=== PATIENT | male | born 1960 | race Caucasian/White ===

== ENCOUNTER 2020-08-18 08:55 | Day surgery (SDC) | payer OTHER ==
[~2020-08-18] VITALS: Ht 190.5 cm; Wt 88.5 kg
[2020-08-18] VITALS (10 sets, daily range): BP systolic 125–158; BP diastolic 64–96
[~2020-08-18 08:55] MED LIST: HYDRALAZINE HCL25 M1 ORAL; LISINOPRIL40 MG ORAL; METFORMIN HCL850 M1 ORAL; METOPROLOL TART50 M1 ORAL; SYMTUZA 800-151 EACH PO
--- NOTE | 2020-08-18 10:19 | Anethesia Preoperative Eval ---
Anesthesia Pre-op PMH/ROS General Date of Evaluation: Aug 18, 2020 Anesthesiologist: Arthur ASA Score: ASA 2 Mallampati Score Class I : Soft palate, uvula, fauces, pillars visible Class II: Soft palate, uvula, fauces visible Class III: Soft palate, base of uvula visible Class IV: Only hard plate visible Mallampati Classification: Class II Surgeon: Kofi Diagnosis: Anal condyloma Surgical Procedure: excisin anal condyloma Anesthesia History: none Family History: no anesthesia problems Allergies: Coded Allergies: No Known Allergies (Unverified , 08/18/20) Medications: see eMAR Patient NPO?: Yes NPO Date: Aug 18, 2020 NPO Time: 00:00 Past Medical History Cardiovascular: Reports: HTN; Denies: CAD, NH, valve dz, arrhythmia, other Pulmonary: Denies: asthma, COPD, KEVIN, other Gastrointestinal/Genitourinary: Denies: GERD, CRI, ESRD, other Neurologic/Psychiatric: Denies: dementia, CVA, depression/anxiety, TIA, other Endocrine: Reports: DM; Denies: hypothyroidism, steroids, other HEENT: Denies: cataract (L), cataract (R), glaucoma, SITKA (L), SITKA (R), other Hematology/Immune: Reports: other - HIV; Denies: anemia, DVT, bleeding disorder Musculoskeletal/Integumentary: Denies: OA, RA, DJD, DDD, edema, other PSxH Narrative: left arm surgery Anesthesia Pre-op Phys. Exam Physician Exam Last Vital Signs Date Time Temp Pulse Resp B/P (MAP) Pulse Ox O2 Delivery O2 Flow Rate FiO2 08/18/20 09:26 98.9 74 20 158/96 98 Room Air Constitutional: NAD Cardiovascular: RRR Respiratory: CTA Airway Exam Mallampati Score: Class II MO: full ROM: full Teeth: intact Anesthesia Pre-op A/P Labs Chemistry Test 08/18/20 09:35 POC Whole Blood Glucose 147 MG/DL (74-106) H Risk Assessment & Plan Assessment: ASA II Plan: MAC Status Change Before Surgery: No Pre-Antibiotics Drug: Sarah Villa MD Aug 18, 2020 10:19
[2020-08-18] MEDS ORDERED: fentaNYL 100 mcg/2 mL IV ONE (10:22)
[2020-08-18] MEDS ORDERED: Midazolam 2mg/2ml Inj ONE (10:22)
[2020-08-18] MEDS ORDERED: Lidocaine 1% MPF 10mg/ml 5ml ONE (10:22)
[2020-08-18] MEDS ORDERED: EPINEPHrine 1mg/1ml Amp ONE (10:30)
[2020-08-18] MEDS ORDERED: Ropivacaine 5mg/ml Vial 30ml INJ ONE (10:31)
--- NOTE | 2020-08-18 10:59 | Pre-Procedure Note/Attestation ---
Pre-Procedure Note/Attestation Complete Prior to Procedure Planned Procedure: not applicable Procedure Narrative: Excision and fulguration of anal condyloma Indications for Procedure Pre-Operative Diagnosis: Anal condyloma Attestation I attest that I discussed the nature of the procedure; its benefits; risks and complications; and alternatives (and the risks and benefits of such alternati ves), prior to the procedure, with the patient (or the patient's legal accounts receivable representative). I attest that, if there was a reasonable possibility of needing a blood transfusion, the patient (or the patient's legal accounts receivable representative) was given the [facility] standardized written summary, pursuant to the [place] Blood Safety Act ([place] Health and Safety Code # 1645, as amended). I attest that I re-evaluated the patient just prior to the surgery and that there has been no change in the patient's H&P, except as documented below: Alison Kirby MD Aug 18, 2020 10:59
[2020-08-18] MEDS ORDERED: LR 1000ml ONE (11:00)
[2020-08-18] MEDS ORDERED: NS Irrig 1000ml ONE (11:00)
[2020-08-18] MEDS ORDERED: Sterile Water Irrig 1000ml IRRIG ONE (11:00)
[2020-08-18] MEDS ORDERED: Acetic Acid 3% Solution 15ml TOPIC ONE (11:30)
[2020-08-18] MEDS ORDERED: DiphenhydrAMINE 50mg/ml Inj ONE (11:46)
--- NOTE | 2020-08-18 12:02 | Immediate Post-Op Evaluation ---
Immediate Post-Op Evalulation Immediate Post-Op Evalulation Procedure: Excision anal condyloma Date of Evaluation: Aug 18, 2020 Time of Evaluation: 12:04 IV Fluids: 600 Blood Products: 0 Estimated Blood Loss: min Urinary Output: 0 Blood Pressure Systolic: 168 Blood Pressure Diastolic: 91 Pulse Rate: 77 Respiratory Rate: 16 O2 Sat by Pulse Oximetry: 100 Temperature (Fahrenheit): 98.9 Pain Score (1-10): 0 Nausea: No Vomiting: No Complications 0 Patient Status: awake, reacts, patent, none Hydration Status: adequate Drug: ancef 2g Given Within 1 Hr of Incision: Yes Sarah Gibson MD Aug 18, 2020 12:02
--- NOTE | 2020-08-18 12:03 | 48 Hour Post Anesthesia Eval ---
Post Anesthesia Evaluation Procedure: Excision anal condyloma Date of Evaluation: Aug 18, 2020 Airway: patent Nausea: No Vomiting: No Hydration Status: adequate Cardiopulmonary Status: at baseline Mental Status/LOC: patient returned to baseline Post-Anesthesia Complications: 0 Follow-up care needed: ready to discharge Sarah Gibson MD Aug 18, 2020 12:03
--- NOTE | 2020-08-18 13:15 | Operative Note - Dictated ---
DATE OF OPERATION: 08/18/2020 PREOPERATIVE DIAGNOSIS: Anal condyloma. POSTOPERATIVE DIAGNOSIS: Anal condyloma. PROCEDURE: Excision and fulguration of anal condyloma. SURGEON: Alison Kirby MD. ANESTHESIOLOGIST: Sarah Gibson MD. ANESTHESIA: Propofol sedation local anesthetic. INDICATION FOR PROCEDURE: The patient is a 60-year-old male, who was sent to my office by his physician Dr. Harry Skinner and his speed belt sander Dr. Marcelo Cheng for colorectal surgical evaluation of anal condyloma seen on his recent colonoscopy by Dr. Cheng. The patient was seen in the office, was noted to have extensive external and internal anal condyloma. The patient has a history of HIV, diagnosed in 1987. In light of the patient's findings, it was determined at this time to proceed with excision and fulguration under sedation. DESCRIPTION OF PROCEDURE: Upon consent of the patient, the patient was brought to the operating room and placed in the prone ramon-knife position on the operating table. Once adequate sedation had been established with a propofol drip, the patient's buttocks were prepped and draped in the usual standard surgical fashion. A 40 mL of 0.5% ropivacaine with epinephrine mixed with 8 mg of dexamethasone was used as a perianal and pudendal block. A Hill-Collado retractor was placed into the anal canal and there was noted to be extensive external and internal anal condyloma. These were removed and sent off the field as separate specimens. There was also a anal skin tag. External anal skin tag was also removed and sent off the field as specimens as well. One of the internal anal condyloma in the internal anal canal was excised and the mucosal defect was closed with a running 2-0 Vicryl suture. The patient did have moderate internal hemorrhoids circumferentially. The anal canal was stained with 3% acetic acid. All areas were stained white electro-fulgurated as well. The anal canal was then irrigated and hemostasis was confirmed. A sterile dry dressing was used as an outer dressing. Sponge, needle, and instrument counts were correct at the end of the case. The patient was awakened from anesthesia, brought to postanesthesia recovery in stable condition. ESTIMATED BLOOD LOSS: Less than 5 mL. DRAINS: None. SPECIMENS: External anal condyloma, external anal skin tag, internal anal condyloma. COMPLICATIONS: None. Alison Kirby M.D. DR: JOSEPHINE JOB#: [id number] CC: Alison Kirby MD.; Fax#: [phone] Harry Skinner MD. Marcelo Cheng MD.
--- NOTE | 2020-08-18 13:21 | Brief Operative Note ---
Immediate Post Operative Note Operative Note Chief Complaint: anal condyloma Pre-op Diagnosis: Anal condyloma Procedure: same Post-op Diagnosis: same as pre-op Findings: consistent w/pre-op dx studies Surgeon: Alison Kirby MD Anesthesiologist: Sarah Gibson MD Anesthesia: moderate sedation Specimen: yes Complications: none Condition: stable Fluids: see anesthesia record Estimated Blood Loss: minimal Drains: none Implant(s) used?: No Alison Kirby MD Aug 18, 2020 13:21
== END 2020-08-18 13:20 | disposition home or self-care (01) ==
LOC: SUR 08:55
DX: A63.0 Anogenital (venereal) warts (principal); K64.4 Residual hemorrhoidal skin tags; K64.8 Other hemorrhoids; B20 Human immunodeficiency virus [HIV] disease; I10 Essential (primary) hypertension; E11.9 Type 2 diabetes mellitus without complications
CPT/HCPCS: 46924; 82962; 94003; J0171; J0690; J1100; J1200; J2250; J2704; J2795; J3010; J7120; U0002; 94150